=== PATIENT | male | born 1965 | race African-American/Black ===

== ENCOUNTER 2018-02-05 16:34 | Emergency (ER) | payer MEDICAID ==
[~2018-02-05] VITALS: Ht 182.9 cm; Wt 79.0 kg
[2018-02-05 16:38] VITALS: BP 119/67
== END 2018-02-05 21:30 | disposition left against medical advice (07) ==
LOC: ER 16:34
DX: Z53.21 Procedure and treatment not carried out due to patient leaving prior to being seen by health care provider (principal)